=== PATIENT | female | born 1965 | race Caucasian/White ===

== ENCOUNTER → 2020-07-31 16:51 | Outpatient (BNVA) | payer OTHER, SELFPAY | PROVIDERS: Visit Provider Nurse Practitioner Family | DX: Z11.59 Encounter for screening for other viral diseases (principal) | CPT/HCPCS: 87635 ==

== ENCOUNTER → 2020-11-07 11:43 | Outpatient (BNVA) | payer OTHER, SELFPAY | PROVIDERS: Visit Provider Nurse Practitioner Family | DX: H66.91 Otitis media, unspecified, right ear (principal); H60.91 Unspecified otitis externa, right ear; H60.391 Other infective otitis externa, right ear; Z20.828 Contact with and (suspected) exposure to other viral communicable diseases | CPT/HCPCS: 87635 ==

== ENCOUNTER → 2020-11-17 09:06 | Outpatient (BNVA) | payer OTHER, SELFPAY | PROVIDERS: Visit Provider Nurse Practitioner Family | DX: Z20.828 Contact with and (suspected) exposure to other viral communicable diseases (principal); H60.91 Unspecified otitis externa, right ear; R51.9 Headache, unspecified; H60.501 Unspecified acute noninfective otitis externa, right ear | CPT/HCPCS: 85025; 87635 ==

== ENCOUNTER → 2021-05-25 09:44 | Outpatient (BNVA) | payer SELFPAY | PROVIDERS: PCP Nurse Practitioner Family; Visit Provider Nurse Practitioner Family | DX: R30.0 Dysuria (principal); N39.0 Urinary tract infection, site not specified | CPT/HCPCS: 81003; 87086 ==

== ENCOUNTER → 2021-06-01 10:19 | Outpatient (BNVA) | payer SELFPAY | PROVIDERS: PCP Nurse Practitioner Family; Visit Provider Nurse Practitioner Family | DX: R30.0 Dysuria (principal); N39.0 Urinary tract infection, site not specified; R31.29 Other microscopic hematuria | CPT/HCPCS: 81003; 87086 ==

== ENCOUNTER → 2021-06-16 08:44 | Outpatient (BNVA) | payer SELFPAY | PROVIDERS: PCP Nurse Practitioner Family; Visit Provider Nurse Practitioner Family | DX: N39.0 Urinary tract infection, site not specified (principal); R31.9 Hematuria, unspecified | CPT/HCPCS: 80053; 81000; 85025 ==

== ENCOUNTER → 2021-06-29 11:30 | Outpatient (BNVA) | payer SELFPAY | PROVIDERS: PCP Nurse Practitioner Family; Visit Provider Nurse Practitioner Family | DX: Z20.822 Contact with and (suspected) exposure to COVID-19 (principal) | CPT/HCPCS: 87635 ==

== ENCOUNTER → 2023-06-27 08:06 | Outpatient (BNVA) | payer MEDICAID, SELFPAY | PROVIDERS: PCP Nurse Practitioner Family; Visit Provider Nurse Practitioner Family | DX: R30.0 Dysuria (principal); R53.83 Other fatigue; Z13.6 Encounter for screening for cardiovascular disorders | CPT/HCPCS: 80053; 80061; 81000; 82306; 82607; 84443; 85025; 87086 ==

== ENCOUNTER → 2023-07-05 09:18 | Outpatient (BNVA) | payer MEDICAID, SELFPAY | PROVIDERS: PCP Nurse Practitioner Family; Visit Provider Nurse Practitioner Family | DX: R30.0 Dysuria (principal); N39.0 Urinary tract infection, site not specified; R31.9 Hematuria, unspecified; M79.89 Other specified soft tissue disorders; Z87.448 Personal history of other diseases of urinary system; E78.5 Hyperlipidemia, unspecified | CPT/HCPCS: 81000 ==

== ENCOUNTER 2023-07-06 10:38 | Emergency (ER) | payer MEDICAID, SELFPAY ==
[2023-07-06 10:52] VITALS: BMI 22.1
[2023-07-06 10:53] VITALS: BP 153/97; PULSE 72; RESP 16; TEMP 37.1; O2SAT 98
--- NOTE | 2023-07-06 10:59 | ED_ITS ---
HPI - Abdominal Pain General: Chief Complaint: Abdominal Pain Stated Complaint: NV Time Seen by Provider: 07/06/23 10:40 Source: patient Mode of arrival: ambulatory Limitations: no limitations History of Present Illness: Patient is a 58-year-old female presents to ED today with a complaint of lower back pain, bladder pain and spasms, dysuria, and feeling fatigued. Patient states she was seen on 06/27 for similar symptoms through primary care and prescribed antibiotics?Macrobid. She states she did not fill these antibiotics until yesterday and has had a total of one dose. She is not reporting flank pain. She reportedly has a history of some type of ureter/kidney stent that was placed years ago by Dr. Silverman for renal calcification. States this morning she felt nauseous and had one episode of vomiting. She has had normal bowel movements. She states her bladder pain and spasms are worse with urination. MD elicited complaint: other (back/urinary complaints) Onset (ago): day(s) Pain Consistency: intermittent Location: Suprapubic Severity: moderate Quality: burning Radiation: none Migration to: no migration Exacerbating factors: other (urinating) Relieving factors: nothing Associated Symptoms: Reports dysuria, nausea and vomiting (x 1); Denies chills, diarrhea, fever(s), hematuria, hematemesis and syncope Related Data: Patient : No Review of Systems Const: Reports: fatigue; Denies: fever(s), chills, body aches or malaise Eyes: Denies: change in vision, blurry vision, photophobia, floaters or seeing flashes ENMT: Denies: throat pain, odynophagia, ear or mastoid pain, nasal discharge, nasal congestion or sinus pain Card: Denies: chest pain, palpitations, irregular heart rhythm, edema, swelling of feet/ankles, lightheadedness, syncope, pre-syncope, dyspnea on exertion, orthopnea, leg pain with exertion or acrocyanosis Resp: Denies: dyspnea, productive cough, non-productive cough, wheezing, pain on inspiration, hemoptysis or chest congestion GI: Reports: nausea and vomiting (x 1); Denies: abdominal pain, hematemesis or diarrhea : Reports: dysuria and pelvic pain; Denies: flank pain, difficulty voiding, urinary frequency, urinary urgency, urinary hesitancy or hematuria Musc: Reports: back pain; Denies: neck pain, extremity pain, extremity swelling, joint pain or joint swelling Skin/Breast: Denies: rash Neuro: Denies: headache(s), numbness in extremities, weakness in extremities, sensory changes or dizziness PFSH ED PFSH: Medical History Hx of migraines Hyperlipemia No pertinent past medical history Surgical History History of hysterectomy History of kidney surgery 2010 History of knee surgery History of tonsillectomy Family History Father Cancer Hypertension Diabetes Grandmother Cancer Social History Smoking and tobacco status: never smoked Second hand smoke exposure: No Smoking risk assessment/counseling performed?: No Alcohol intake: never Desire information about alcohol rehabilitation?: No Counseling given: No Substance/Drug Use: current Substance/Drug use frequency: daily Desire information about substance/drug rehabilitation?: No Counseling given: No Adopted: No Caregiver/support person: No Lives independently: Yes Household members: spouse Housing: House Marital status: Number of children: 2 Number of grandchildren: 1 Highest education level completed: High School Graduate service: No Current occupational status: unemployed Special darrius needs: No Physical Exam Const: COMMON NORMALS: no acute distress, average body habitus, patient oriented x3, no limitations, healthy appearing, alert and well nourished GENERAL APPEARANCE: cooperative ORIENTATION/CONSCIOUSNESS: Yes awake, Yes oriented to person, Yes oriented to place and Yes oriented to time Resp: COMMON NORMALS: normal respiratory effort and clear to auscultation bilaterally AUSCULTATION: clear to auscultation bilaterally Cardio: COMMON NORMALS: regular rate and regular rhythm RATE: regular rate RHYTHM: regular rhythm GI: COMMON NORMALS: Normal to inspection, nondistended, normoactive bowel sounds present, Soft to palpation, No hepatosplenomegaly present and no masses INSPECTION: Yes normal to inspection AUSCULTATION: Yes normoactive bowel sounds PALPATION: Yes Soft to palpation, Yes Tenderness to palpation present (GI) (throughout lower abdomen), No Guarding due to palpation present (GI), No Rigid due to palpation and Yes No hepatosplenomegaly present : COMMON NORMALS: Yes no CVA tenderness BLADDER/KIDNEY EXAM: Yes no CVA tenderness Back/Pelvis: COMMON NORMALS: no CVA tenderness, thoracic and lumbar spine normal to inspection, no thoracic nor lumbar tenderness and thoraco-lumbar ROM normal Extremity: COMMON NORMALS: normal to inspection GENERAL: Yes normal exam except as noted Neuro: DANE COMA SCALE: document GCS findings [place] coma scale eye opening: Spontaneous [place] coma scale verbal response: Orientated [place] coma scale motor response: Obey commands [place] coma scale total score: 15 COMMON NORMALS: patient oriented x3 SENSORIUM/ORIENTATION: Yes alert, Yes oriented to person, Yes oriented to place and Yes oriented to time Skin: COMMON NORMALS: no rashes or lesions noted GENERAL SKIN EXAM: no rashes or lesions noted Course Vital Signs: Vital signs: Vital Signs Temperature 98.7 F 07/06/23 10:53 Pulse Rate 82 07/06/23 12:45 Respiratory Rate 16 07/06/23 12:45 Blood Pressure 138/94 07/06/23 12:45 Pulse Oximetry 97 07/06/23 12:45 Oxygen Delivery Me thod Room Air 07/06/23 12:45 MDM - Abdominal Pain Medical Decision Making Patient appears in no acute distress. Her vital signs are stable. Blood work is unremarkable. UA somewhat erroneous as nitrate could not be tested secondary to color interference however color was then reported as yellow and clear. She has been taking Azo so I think the appearance is probably charted in error as patient states her urine has been orange. She does have leuks, blood, 5-10 WBCs, and bacteria/mucous. Due to these findings and symptoms I would like her to continue her Macrobid until complete. Will culture. CT scan showing no acute findings. Return to ED precautions. Lab Data 07/06/23 11:05 07/06/23 11:05 Labs/Radiology: Laboratory Results WBC 6.23 10^3/uL (3.29-11.43) 07/06/23 11:05 RBC 4.30 10^6/uL (3.85-5.65) 07/06/23 11:05 Hgb 13.20 g/dL (11.27-16.99) 07/06/23 11:05 Hct 39.9 % (36-47) 07/06/23 11:05 MCV 92.8 fl (85-98) 07/06/23 11:05 MCH 30.7 pg (27-33) 07/06/23 11:05 MCHC 33.1 g/dL (30-55) 07/06/23 11:05 RDW 13.6 % (12.1-15.1) 07/06/23 11:05 Plt Count 300 10^3/cmm (157-399) 07/06/23 11:05 MPV 9.1 fL (7.4-10.4) 07/06/23 11:05 Neut % (Auto) 73.5 % 07/06/23 11:05 Lymph % (Auto) 19.9 % 07/06/23 11:05 [place] % (Auto) 5.1 % 07/06/23 11:05 Eos % (Auto) 0.8 % 07/06/23 11:05 Baso % (Auto) 0.5 % 07/06/23 11:05 Neut # (Auto) 4.58 10^3/uL (1.8-7.7) 07/06/23 11:05 Lymph # (Auto) 1.2 10^3/uL (0.8-4.8) 07/06/23 11:05 [place] # (Auto) 0.3 10^3/uL (0.2-0.9) 07/06/23 11:05 Eos # (Auto) 0.1 10^3/uL (0.0-0.8) 07/06/23 11:05 Baso # (Auto) 0.0 10^3/uL (0.0-0.1) 07/06/23 11:05 Nucleated RBC % (auto) 0 % 07/06/23 11:05 Nucleated RBCs # 0.0 /100WBC 07/06/23 11:05 Sodium 136 mmol/L (136-145) 07/06/23 11:05 Potassium 3.8 mmol/L (3.5-5.1) 07/06/23 11:05 Chloride 101 mmol/L (98-107) 07/06/23 11:05 Carbon Dioxide 25 mmol/L (22-29) 07/06/23 11:05 Anion Gap 13.8 (5-19) 07/06/23 11:05 BUN 13 mg/dL (6-20) 07/06/23 11:05 Creatinine 0.5 mg/dL (0.5-0.9) 07/06/23 11:05 GFR Calculation 127.6 mL/min (90-130) 07/06/23 11:05 Glucose 106 mg/dL (65-115) 07/06/23 11:05 Calculated Osmolality 283 mOsm/kg (285-295) L 07/06/23 11:05 Calcium 9.1 mg/dL (8.5-10.5) 07/06/23 11:05 Total Bilirubin 0.4 mg/dL (0.15-1.2) 07/06/23 11:05 AST 25 U/L (0-32) 07/06/23 11:05 ALT 22 U/L (0-33) 07/06/23 11:05 Alkaline Phosphatase 58 U/L (35-105) 07/06/23 11:05 Total Protein 6.7 g/dL (6.6-8.7) 07/06/23 11:05 Albumin 4.1 g/dL (3.5-5.2) 07/06/23 11:05 Globulin 2.6 g/dL (1.3-4.6) 07/06/23 11:05 Lipase 30 U/L (13-60) 07/06/23 11:05 Urine Color Yellow (Yellow) 07/06/23 12:17 Urine Appearance Clear (CLEAR) 07/06/23 12:17 Urine pH 7 (5-7) 07/06/23 12:17 Ur Specific [place] 1.005 (1.005-1.030) 07/06/23 12:17 Urine Protein 3+ (Negative) H 07/06/23 12:17 Urine Glucose (UA) Norm (Normal) 07/06/23 12:17 Urine Ketones 2+ (Negative) H 07/06/23 12:17 Urine Blood 2+ (Negative) H 07/06/23 12:17 Urine Nitrate Not tested (Negative) A 07/06/23 12:17 Urine Bilirubin 1+ (Negative) H 07/06/23 12:17 Urine Urobilinogen 4 mg/dL (Negative) H 07/06/23 12:17 Ur Leukocyte Esterase 1+ (Negative) H 07/06/23 12:17 Urine RBC 0-4 /hpf (0-2) H 07/06/23 12:17 Urine WBC 5-10 /hpf (0-5) H 07/06/23 12:17 Ur Squamous Epith Cells 0-4 /hpf (0-5) H 07/06/23 12:17 Amorphous Sediment Not Reportable 07/06/23 12:17 Urine Bacteria 1+ /hpf (NONE) H 07/06/23 12:17 Urine Mucus 1+ /hpf 07/06/23 12:17 All radiology interpretation(s) finalized by discharge Discharge Plan Discharge Patient Disposition: Home Clinical Impression: Acute cystitis Qualifiers: Hematuria presence: with hematuria Qualified Code(s): N30.01 - Acute cystitis with hematuria Condition: Stable Prescriptions: No Action diphenhydramine HCl [Benadryl Allergy] 25 mg tablet 50 mg PO DAILY PRN (Reason: Allergy Symptoms) cholecalciferol (vitamin D3) 25 mcg (1,000 unit) capsule 25 mcg PO DAILY nitrofurantoin monohyd/m-cryst [Macrobid] 100 mg capsule 100 mg PO Q12H 7 Days Qty: 14 0RF Rx Instructions: must administer with a meal/food atorvastatin 20 mg tablet 20 mg PO DAILY Qty: 30 5RF phenazopyridine [Pyridium] 200 mg tablet 200 mg PO TID PRN (Reason: pain) Qty: 6 0RF Motrin 400 mg Tablet 800 mg PO DAILY Flonase 50 mcg/actuation [place],Suspension 1 spray INTRANASAL DAILY Rx Instructions: administer into each nostril Women's Multivitamin 18 mg iron-400 mcg-500 mg Tablet 1 tab PO DAILY Discharge Orders: Discharge ED (Routine); Ordered 07/06/23 Ordered By: Leonora Mancini Referrals: Pooja Joseph FNP-C [Primary Care Provider] - Activity Restrictions/Additional Instructions: As we discussed continue your current antibiotic Macrobid. We will culture urine today. You need to follow-up with primary care once Macrobid is completed. You may return to the emergency department for worsening pain, flank pain, fevers, generally feeling worse or unwell, or any other concerns you may have. I hope you begin to feel better soon. Coding Level of Care Code ED Insurance Legal Assistant for Nika Hampton
[2023-07-06 11:09] LABS: Basophils % 0.5 %; Eosinophils # 0.1 10^3/uL (0.0-0.8); Eosinophils % 0.8 %; Hematocrit 39.9 % (36-47); Lymphocytes # 1.2 10^3/uL (0.8-4.8); Lymphocytes % 19.9 %; Mean Corpuscular HGB Conc 33.1 g/dL (30-55); Mean Corpuscular Hemoglobin 30.7 pg (27-33); Mean Corpuscular Volume 92.8 fl (85-98); Mean Platelet Volume 9.1 fL (7.4-10.4); Monocytes # 0.3 10^3/uL (0.2-0.9); Monocytes % 5.1 %; Neutrophils # 4.58 10^3/uL (1.8-7.7); Neutrophils % 73.5 %; Nucleated Red Blood Cells % 0 %; Platelet Count 300 10^3/cmm (157-399); Red Cell Distribution Width 13.6 % (12.1-15.1); White Blood Count 6.23 10^3/uL (3.29-11.43)
--- NOTE | 2023-07-06 11:31 | CT_ITS ---
WS: [id number] CT ABDOMEN PELVIS TECHNIQUE: Contrast-enhanced CT of the abdomen and pelvis with coronal and sagittal reformatted image s. CLINICAL INFORMATION: bladder pain/dysuria, low back pain, vomiting blood, fatigue COMPARISON: None. DLP: 314.[address] scans at [facility] use at least one of these dose optimization techniques: automated e xposure control; mA and/or kV adjustment per patient size (includes targeted exams where dose is matc hed to clinical indication); or iterative reconstruction. FINDINGS: Mild diffuse fatty filtration of the liver. Cholecystectomy clips. Physiologic dilatation of the comm on bile duct postcholecystectomy. Normal portal vein and splenic vein. Normal spleen. Normal GE junct ion. Lung bases are well aerated. Celiac and SMA are patent. Normal caliber abdominal aorta. Mild aortic c alcification. Adrenal glands are normal. Normal renal parenchymal enhancement. No hydronephrosis. Small bilateral r enal cysts. Prominent LEFT extrarenal pelvis. Normal pancreatic parenchymal enhancement. Urine disten ded bladder. No evidence of high-grade small or large bowel obstruction. No periaortic or inguinal ly mphadenopathy. IMPRESSION: 1. No acute findings in the abdomen or pelvis. 2. Prior cholecystectomy. 3. Small bilateral renal cysts. 4. No hydronephrosis in either kidney.
[2023-07-06 11:39] LABS: Alanine Aminotransferase 22 U/L (0-33); Albumin Level 4.1 g/dL (3.5-5.2); Alkaline Phosphatase 58 U/L (35-105); Anion Gap 13.8 (5-19); Aspartate Amino Transferase 25 U/L (0-32); Blood Urea Nitrogen 13 mg/dL (6-20); Calcium 9.1 mg/dL (8.5-10.5); Carbon Dioxide 25 mmol/L (22-29); Chloride 101 mmol/L (98-107); Globulin 2.6 g/dL (1.3-4.6); Glomerular Filtration Rate 127.6 mL/min (90-130); Glucose 106 mg/dL (65-115); Lipase 30 U/L (13-60); Osmolality Calculated 283 mOsm/kg (285-295); Potassium 3.8 mmol/L (3.5-5.1); Sodium 136 mmol/L (136-145); Total Bilirubin 0.4 mg/dL (0.15-1.2); Total Protein 6.7 g/dL (6.6-8.7)
[2023-07-06] MEDS: iohexol 350 mg/mL 500 mL Btl (per mL) IV (12:14)
[2023-07-06 12:45] VITALS: BP 138/94; PULSE 82; RESP 16; O2SAT 97
[2023-07-06 12:51] LABS: Glucose Urine UA Norm (Normal); Ketones Urine 2+ (Negative); Protein Urine 3+ (Negative); Specific Gravity, Urine 1.005 (1.005-1.030); Urine Appearance Clear (CLEAR); Urine Color Yellow (Yellow); pH Urine 7 (5-7)
[2023-07-06 12:52] LABS: Add Urine Microscopic? YES; Bacteria Urine 1+ /hpf; Bilirubin Urine 1+ (Negative); Blood Urine 2+ (Negative); Leukocyte Esterase Urine 1+ (Negative); Mucus Urine 1+ /hpf; Nitrate Urine Not Tested (Negative); RBC Urine 0-4 /hpf (0-2); Squamous Epithelial Cell Urine 0-4 /hpf (0-5); Urobilinogen Urine 4 mg/dL (Negative)
[2023-07-06 12:53] LABS: Add Urine Culture? No
== END 2023-07-06 13:22 | disposition home or self-care (01) ==
PROVIDERS: Emergency Provider Physician Assistant; PCP Nurse Practitioner Family
DX: N30.01 Acute cystitis with hematuria (principal); E78.5 Hyperlipidemia, unspecified
CPT/HCPCS: 36415; 74177; 80053; 81001; 83690; 85025; 87086; 99285; Q9967

== ENCOUNTER 2023-07-11 14:29 | Outpatient (CLI) | payer MEDICAID, SELFPAY ==
--- NOTE | 2023-07-11 14:38 | MM_ITS ---
WS: [id number] BILATERAL 3D TOMOSYNTHESIS DIGITAL SCREENING MAMMOGRAPHY WITH CAD CLINICAL INFORMATION: Z12.39 - Encounter for other screening for malignant neop... HISTORY: Screening mammogram. No current complaints. COMPARISON: 2017 TECHNIQUE: Bilateral CC and MLO views. FINDINGS: Scattered fibroglandular densities bilaterally. No suspicious focal mass, asymmetry, calcifications, or architectural distortion. No evidence of malignancy. Incidental punctate and lucent centered calci fications. IMPRESSION: MM/[place] [id number] BI-RADS: 2-Benign FOLLOW UP: 1 Year Follow-up Recommend return to annual screening mammography.
[2023-07-11] MEDS: iohexol 350 mg/mL 500 mL Btl (per mL) PO (15:10)
== END 2023-07-11 14:30 | disposition home or self-care (01) ==
LOC: RAD 14:30
PROVIDERS: PCP Nurse Practitioner Family; Visit Provider Nurse Practitioner Family
DX: Z12.31 Encounter for screening mammogram for malignant neoplasm of breast
CPT/HCPCS: 77063; 77067; 80053; 80061; 81000; 82306; 82607; 84443; 85025; 87086; Q9967

== ENCOUNTER → 2023-07-12 08:27 | Outpatient (BNVA) | payer MEDICAID, SELFPAY | PROVIDERS: PCP Nurse Practitioner Family; Visit Provider Nurse Practitioner Family | DX: R30.0 Dysuria (principal); N39.0 Urinary tract infection, site not specified; R31.9 Hematuria, unspecified; N28.1 Cyst of kidney, acquired; M79.89 Other specified soft tissue disorders; Z87.448 Personal history of other diseases of urinary system; E78.5 Hyperlipidemia, unspecified | CPT/HCPCS: 81000 ==

== ENCOUNTER → 2023-09-21 10:29 | Outpatient (BNVA) | payer MEDICAID, SELFPAY | PROVIDERS: PCP Nurse Practitioner Family; Visit Provider Nurse Practitioner Family | DX: R05.9 Cough, unspecified (principal); R30.0 Dysuria; R82.90 Unspecified abnormal findings in urine | CPT/HCPCS: 81000; 87077; 87086; 87184; 87400; 87426 ==

== ENCOUNTER → 2024-01-10 10:05 | Outpatient (BNVA) | payer MEDICAID, SELFPAY | PROVIDERS: PCP Nurse Practitioner Family; Visit Provider Nurse Practitioner Family | DX: R50.9 Fever, unspecified (principal) | CPT/HCPCS: 87400 ==

== ENCOUNTER → 2024-09-19 11:33 | Outpatient (BNVA) | payer MEDICAID, SELFPAY | PROVIDERS: PCP Nurse Practitioner Family; Visit Provider Clinical Nurse Specialist Adult Health | DX: J06.9 Acute upper respiratory infection, unspecified (principal) | CPT/HCPCS: 87400; 87426 ==

== ENCOUNTER 2024-09-22 14:03 | Emergency (ER) | payer MEDICAID, SELFPAY ==
--- NOTE | 2024-09-22 14:05 | ECG_ITS ---
[facility] [place] [facility] Date: 2024-09[facility]22 Pat Name: Janet Rosas Department: Room: Gender: Female Emergency Room Specialist: : [id number] Requested By: Ian Houston Order Number: [id number] Reading MD: RIA MATIAS Measurements Intervals [place] Rate: 78 P: 70 MD: 136 QRS: 1 QRSD: 85 T: 62 QT: 377 QTc: 432 Interpretive Statements SINUS RHYTHM MINIMAL ST DEPRESSION [0.025+ mV ST DEPRESSION] No previous ECG available for comparison Electronically Signed On 09-24-2024 16:12:01 STAND UP COMEDIAN by RIA MATIAS [email or web address]
--- NOTE | 2024-09-22 14:05 | XRR_ITS ---
PROCEDURE INFORMATION: Exam: XR Chest Exam date and time: 09/22/2024 3:00 PM Age: 59 years old Clinical indication: Shortness of breath; Additional info: SOB TECHNIQUE: Imaging protocol: Radiologic exam of the chest. Views: 1 view. COMPARISON: CT abdomen pelvis w con* [id number] 07/06/2023 12:02 PM FINDINGS: Lungs: Scarring in the lung apices. Otherwise, unremarkable. Pleural spaces: Unremarkable. No pleural effusion. No pneumothorax. Heart/Mediastinum: Unremarkable. No cardiomegaly. Bones/joints: Mild scoliosis. Minimal spondylosis. Otherwise, unremarkable. XR/XR chest 1V portable [id number] IMPRESSION: No acute disease.
[2024-09-22 14:13] VITALS: BP 145/83; PULSE 77; RESP 18; TEMP 36.7; O2SAT 97
[2024-09-22 14:45] LABS: Basophils % 0.3 %; Eosinophils % 0.4 %; Hematocrit 37.8 % (36-47); Lymphocytes # 2.5 10^3/uL (0.8-4.8); Lymphocytes % 33.2 %; Mean Corpuscular HGB Conc 32.5 g/dL (30-55); Mean Corpuscular Hemoglobin 30.2 pg (27-33); Mean Corpuscular Volume 92.9 fl (85-98); Mean Platelet Volume 9.5 fL (7.4-10.4); Monocytes # 0.5 10^3/uL (0.2-0.9); Monocytes % 7.2 %; Neutrophils # 4.35 10^3/uL (1.8-7.7); Neutrophils % 58.6 %; Nucleated Red Blood Cells % 0 %; Platelet Count 327 10^3/cmm (157-399); Red Blood Count 4.07 10^6/uL (3.85-5.65); Red Cell Distribution Width 13.5 % (12.1-15.1); White Blood Count 7.41 10^3/uL (3.29-11.43)
[2024-09-22 15:16] LABS: Alanine Aminotransferase 16 U/L (0-33); Albumin Level 3.6 g/dL (3.5-5.2); Alkaline Phosphatase 65 U/L (35-105); Anion Gap 13.6 (5-19); Aspartate Amino Transferase 32 U/L (0-32); Blood Urea Nitrogen 15 mg/dL (6-20); Calcium 9.2 mg/dL (8.5-10.5); Carbon Dioxide 24 mmol/L (22-29); Chloride 104 mmol/L (98-107); Creatinine Clr Calc Pharmacy 100.1551; Globulin 2.7 g/dL (1.3-4.6); Glomerular Filtration Rate 127.2 mL/min (90-130); Glucose 92 mg/dL (65-115); NT Pro B Type Natriuretic Pept 273 pg/mL (0-125); Osmolality Calculated 286 mOsm/kg (285-295); Potassium 3.6 mmol/L (3.5-5.1); Sodium 138 mmol/L (136-145); Total Bilirubin 0.2 mg/dL (0.15-1.2); Total Protein 6.3 g/dL (6.6-8.7)
[2024-09-22 15:17] LABS: Covid PCR NEGATIVE (Negative); Influenza A NEGATIVE (Negative); Influenza B NEGATIVE (Negative); Respiratory Syncytial Virus Ce NEGATIVE (Negative)
[2024-09-22] MEDS: dexamethasone 10 mg/mL INJ IM (18:08)
--- NOTE | 2024-09-22 18:09 | ED_ITS ---
HPI - COVID 2 General: Chief Complaint: COVID symptoms Stated Complaint: SOB, cough lips purple Time Seen by Provider: 09/22/24 17:50 Source: patient Mode of arrival: ambulatory Limitations: no limitations History of Present Illness: 59-year-old female states she has been h aving cough congestion some bodyaches over the last 5 to 6 days. States she has had no improvement denies any productive cough she denies any vomiting or diarrhea she had some mild dyspnea no hypoxia. COVID 19 common symptoms: positive non-productive cough; negative fever(s), chills, dyspnea, body aches, headache(s), throat pain, nausea, vomiting or diarrhea COVID 19 other sytmptoms: negative chest pain COVID Results: 2 SARS-CoV-2 Antigen (Rapid) Negative (Negative) 09/19/24 11:33 SARS-CoV-2 RNA (RT-PCR) Not detected (NOT DETECTED) 11/17/20 0 9:06 Nasal/Oral Coronavirus 2019 PCR Not detected 06/29/21 11:30 Coronavirus (PCR) Negative (Negative) 09/22/24 12:17 Related Data Home Medications Medication Instructions Recorded Confirmed cholecalciferol (vitamin D3) 25 25 mcg PO DAILY 11/07/20 01/10/24 mcg (1,000 unit) capsule diphenhydramine HCl 25 mg tablet 50 mg PO DAILY PRN Allergy Symptoms 11/24/20 01/10/24 (Benadryl Allergy) fluticasone propionate 50 1 spray intranasal DAILY 07/06/23 09/19/24 mcg/actuation nasal spray,suspension ibuprofen 400 mg tablet 800 mg PO DAILY 07/06/23 01/10/24 [id number]-[id number]-FA-Ca carb-vit K 1 tab PO DAILY 07/06/23 01/10/24 18 mg iron-400 mcg-500 mg tablet Previous Rx's Medication Instructions Recorded atorvastatin 20 mg tablet 20 mg PO DAILY #30 tabs 07/05/23 hydrochlorothiazide 25 mg tablet 25 mg PO DAILY PRN swelling #30 07/12/23 tabs Allergies Allergy/AdvReac Type Severity Reaction Status Date / Time codeine Allergy ALGY-Anaphy Verified 09/19/24 11:05 laxis Review of Systems 2 Const: Denies: fever(s), chills, body aches or change in appetite ENMT: Denies: throat pain or dental pain Card: Denies: chest pain Resp: Reports: non-productive cough; Denies: dyspnea GI: Denies: abdominal pain, nausea, vomiting or diarrhea Musc: Denies: neck pain or back pain Skin/Breast: Denies: rash Neuro: Denies: headache(s) PFSH ED 2 PFSH: Medical History Hyperlipemia No pertinent past medical history Hx of migraines Surgical History History of tonsillectomy History of hysterectomy History of knee surgery History of kidney surgery 2010 Family History Father Cancer Hypertension Diabetes Grandmother Cancer Social History Smoking and tobacco/nicotine status: never used tobacco/nicotine Second hand smoke exposure: No Alcohol intake: never Substance/Drug Use: current Substance/Drug use frequency: daily Adopted: No Caregiver/support person: No Lives independently: Yes Household members: spouse Housing: House Marital status: Number of children: 2 Number of grandchildren: 1 Highest education level completed: High School Graduate service: No Current occupational status: unemployed Special darrius needs: No Physical Exam 2 Const: COMMON NORMALS: no acute distress, patient oriented x3 and healthy appearing HENMT: COMMON NORMALS: normocephalic and atraumatic HEAD & SCALP: n ormocephalic and atraumatic THROAT: posterior oropharynx normal Eye: COMMON NORMALS: conjunctivae normal CONJUNCTIVA: Yes conjunctivae normal Neck/C-Spine: COMMON NORMALS: full ROM and supple Chest: COMMONS NORMALS: normal inspection of the chest Resp: COMMON NORMALS: normal respiratory effort, No retractions, No use of accessory muscles and clear to auscultation bilaterally AUSCULTATION: clear to auscultation bilaterally Cardio: COMMON NORMALS: regular rate, regular rhythm and No murmurs present (Cardio) RATE: regular rate RHYTHM: regular rhythm Extremity: COMMON NORMALS: normal to inspection and full ROM Neuro: COMMON NORMALS: patient oriented x3, moves all extremities and no focal motor deficits Psych: COMMON NORMALS: mental status grossly normal, Normal thought process present and cooperative THOUGHT PROCESS: Normal thought process present Skin: COMMON NORMALS: no rashes or lesions noted and no wounds GENERAL SKIN EXAM: no rashes or lesions noted Course 2 Vital Signs: Vital signs: Vital Signs Temperature 98.1 F 09/22/24 14:13 Pulse Rate 77 09/22/24 14:13 Respiratory Rate 18 09/22/24 14:13 Blood Pressure 145/83 09/22/24 14:13 Pulse Oximetry 97 09/22/24 14:13 Oxygen Delivery Me thod Room Air 09/22/24 14:13 MDM - COVID Medical Decision Making Patient presents here with cough congestion likely viral upper respiratory infection x-ray shows no pneumonia blood works normal will give her shot of Decadron we will discharge her with inhaler as well she is in no distress here she stable for discharge follow-up PCP return if worsening. Medical Records I reviewed the patient's medical records. Lab Data I reviewed the patient's lab results. 09/22/24 14:26 09/22/24 14:26 Radiology Impressions Chest X-Ray 09/22/24 14:05 IMPRESSION: No acute disease. Laboratory Results WBC 7.41 10^3/uL (3.29-11.43) 09/22/24 14:26 RBC 4.07 10^6/uL (3.85-5.65) 09/22/24 14:26 Hgb 12.30 g/dL (11.27-16.99) 09/22/24 14:26 Hct 37.8 % (36-47) 09/22/24 14:26 MCV 92.9 fl (85-98) 09/22/24 14:26 MCH 30.2 pg (27-33) 09/22/24 14:26 MCHC 32.5 g/dL (30-55) 09/22/24 14:26 RDW 13.5 % (12.1-15.1) 09/22/24 14:26 Plt Count 327 10^3/cmm (157-399) 09/22/24 14:26 MPV 9.5 fL (7.4-10.4) 09/22/24 14:26 Neut % (Auto) 58.6 % 09/22/24 14:26 Lymph % (Auto) 33.2 % 09/22/24 14:26 [place] % (Auto) 7.2 % 09/22/24 14:26 Eos % (Auto) 0.4 % 09/22/24 14:26 Baso % (Auto) 0.3 % 09/22/24 14:26 Neut # (Auto) 4.35 10^3/uL (1.8-7.7) 09/22/24 14:26 Lymph # (Auto) 2.5 10^3/uL (0.8-4.8) 09/22/24 14:26 [place] # (Auto) 0.5 10^3/uL (0.2-0.9) 09/22/24 14:26 Eos # (Auto) 0.0 10^3/uL (0.0-0.8) 09/22/24 14:26 Baso # (Auto) 0.0 10^3/uL (0.0-0.1) 09/22/24 14:26 Nucleated RBC % (auto) 0 % 09/22/24 14:26 Nucleated RBCs # 0.0 /100WBC 09/22/24 14:26 Sodium 138 mmol/L (136-145) 09/22/24 14:26 Potassium 3.6 mmol/L (3.5-5.1) 09/22/24 14:26 Chloride 104 mmol/L (98-107) 09/22/24 14:26 Carbon Dioxide 24 mmol/L (22-29) 09/22/24 14:26 Anion Gap 13.6 (5-19) 09/22/24 14:26 BUN 15 mg/dL (6-20) 09/22/24 14:26 Creatinine 0.5 mg/dL (0.5-0.9) 09/22/24 14:26 GFR Calculation 127.2 mL/min (90-130) 09/22/24 14:26 Glucose 92 mg/dL (65-115) 09/22/24 14:26 Calculated Osmolality 286 mOsm/kg (285-295) 09/22/24 14:26 Calcium 9.2 mg/dL (8.5-10.5) 09/22/24 14:26 Total Bilirubin 0.2 mg/dL (0.15-1.2) 09/22/24 14:26 AST 32 U/L (0-32) 09/22/24 14:26 ALT 16 U/L (0-33) 09/22/24 14:26 Alkaline Phosphatase 65 U/L (35-105) 09/22/24 14:26 NT-Pro-B Natriuret Pep 273 pg/mL (0-125) H 09/22/24 14:26 Total Protein 6.3 g/dL (6.6-8.7) L 09/22/24 14:26 Albumin 3.6 g/dL (3.5-5.2) 09/22/24 14:26 Globulin 2.7 g/dL (1.3-4.6) 09/22/24 14:26 Coronavirus (PCR) Negative (Negative) 09/22/24 12:17 Influenza A (PCR) Negative (Negative) 09/22/24 12:17 Influenza Type B (PCR) Negative (Negative) 09/22/24 12:17 RSV (PCR) Negative (Negative) 09/22/24 12:17 2 SARS-CoV-2 Antigen (Rapid) Negative (Negative) 09/19/24 11:33 SARS-CoV-2 RNA (RT-PCR) Not detected (NOT DETECTED) 11/17/20 0 9:06 Nasal/Oral Coronavirus 2019 PCR Not detected 06/29/21 11:30 Coronavirus (PCR) Negative (Negative) 09/22/24 12:17 All radiology interpretation(s) finalized by discharge Discharge Plan Discharge Patient Disposition: Home Clinical Impression: Upper respiratory infection Qualifiers: URI type: unspecified URI Qualified Code(s): J06.9 - Acute upper respiratory infection, unspecified Condition: Stable Prescriptions: No Action diphenhydramine HCl [Benadryl Allergy] 25 mg tablet 50 mg PO DAILY PRN (Reason: Allergy Symptoms) cholecalciferol (vitamin D3) 25 mcg (1,000 unit) capsule 25 mcg PO DAILY atorvastatin 20 mg tablet 20 mg PO DAILY Qty: 30 5RF hydrochlorothiazide 25 mg tablet 25 mg PO DAILY PRN (Reason: swelling) Qty: 30 2RF Motrin 400 mg Tablet 800 mg PO DAILY Flonase 50 mcg/actuation [place],Suspension 1 spray INTRANASAL DAILY Rx Instructions: administer into each nostril Women's Multivitamin 18 mg iron-400 mcg-500 mg Tablet 1 tab PO DAILY Discharge Orders: Discharge ED (Routine); Ordered 09/22/24 Ordered By: Ian Houston Discharge Diet: Advance as tolerated Discharge Activity: Resume usual activity Patient Instructions: Upper Respiratory Infection (ED) Coding Level of Care Code ED Laser Machine Operator for Nika Hampton
[2024-09-22 18:11] VITALS: BP 147/92; PULSE 75; RESP 16; O2SAT 96; O2SAT 98
[2024-09-22 18:19] VITALS: PULSE 74; RESP 18; O2SAT 97
[2024-09-22 18:21] VITALS: BP 141/99; PULSE 72; RESP 16; O2SAT 99
== END 2024-09-22 18:24 | disposition home or self-care (01) ==
PROVIDERS: Emergency Provider Emergency Medicine
DX: J06.9 Acute upper respiratory infection, unspecified (principal); Z11.52 Encounter for screening for COVID-19; E78.5 Hyperlipidemia, unspecified
CPT/HCPCS: 0241U; 71045; 80053; 83880; 85025; 93005; 94640; 96372; 99284; 99285; J1100; J3535

== ENCOUNTER → 2024-12-18 08:04 | Outpatient (BNVA) | payer MEDICAID, SELFPAY | PROVIDERS: PCP Clinical Nurse Specialist Adult Health; Visit Provider Clinical Nurse Specialist Adult Health | DX: I10 Essential (primary) hypertension (principal); E78.5 Hyperlipidemia, unspecified | CPT/HCPCS: 80053; 80061; 85025 ==

== ENCOUNTER → 2025-07-01 09:28 | Outpatient (BNVA) | payer MEDICAID, SELFPAY | PROVIDERS: PCP Clinical Nurse Specialist Adult Health; Visit Provider Clinical Nurse Specialist Adult Health | DX: I10 Essential (primary) hypertension (principal); E78.5 Hyperlipidemia, unspecified; E55.9 Vitamin D deficiency, unspecified | CPT/HCPCS: 80053; 80061; 82306; 82607; 85025 ==

== ENCOUNTER 2025-10-14 07:51 | Outpatient (CLI) | payer MEDICAID, SELFPAY ==
--- NOTE | 2025-10-14 08:00 | CT_ITS ---
WS: [id number] LDCT LUNG CANCER SCREENING HISTORY: F17.210 - Nicotine dependence, cigarettes, uncomplicated TECHNIQUE: Axial imaging performed from the apices to 1 cm below the costophrenic angles. Coronal and sagittal reformats are submitted with axial MIP series. All CT scans at [facility] use at least one of these dose optimization techniques: automated exposure control; mA and/or kV adjustment per patient size (includes targeted exams where dose is matched to clinical indication); or iterative reconstruction. DLP: 46.79 mGy.cm DIvol: Mean CTDIvol: 0.80 (mGy) COMPARISON: None available. Diagnostic quality: Satisfactory Lungs: Symmetric biapical areas of pleural thickening and fibrosis. Marked pulmonary hyperinflation with centrilobular emphysema. 2 mm nodule RIGHT lower lobe, image 192 series 5. There are a few additional very small nodules also which are micronodules. No mass. No endobronchial lesion. Heart: Normal size heart with no pericardial effusion.. Other findings: Mild atherosclerosis aorta. Normal size pulmonary artery. No pericardial or pleural effusions. No pathologically enlarged lymph nodes. Small hiatal hernia. No adrenal mass. Prior cholecystectomy. Mild increase in thoracic kyphosis. CT/CT lung screening [id number] IMPRESSION: LUNG-RADS: 2-Benign Appearance or Behavior FOLLOW UP: 12 Month: Continue annual screening with LDCT OTHER FINDINGS (S MODIFIER): None.
--- NOTE | 2025-10-14 08:30 | USR_ITS ---
PROCEDURE INFORMATION: Exam: US Duplex Bilateral Lower Extremity Arteries Exam date and time: 10/14/2025 8:04 AM Age: 60 years old Clinical indication: Other: Numbness in toes; Additional info: R20.0 - anesthesia of skin TECHNIQUE: Imaging protocol: Real-time ultrasound scan of the arteries of the bilateral lower extremities with 2-D church scale, color Doppler flow and spectral waveform analysis. Images documented and saved. COMPARISON: CT abdomen pelvis w con* [id number] 07/06/2023 12:02 PM FINDINGS: Right common femoral artery: No occlusion or significant stenosis. Normal waveform. Right superficial femoral artery: No occlusion or significant stenosis. Normal waveform. Right popliteal artery: No occlusion or significant stenosis. Normal waveform. Right calf/foot arteries: No occlusion or significant stenosis in the visualized arteries. Normal waveforms. Dorsalis pedis artery is patent. Left common femoral artery: No occlusion or significant stenosis. Normal waveform. Left superficial femoral artery: No occlusion or significant stenosis. Normal waveform. Left popliteal artery: No occlusion or significant stenosis. Normal waveform. Left calf/foot arteries: No occlusion or significant stenosis in the visualized arteries. Normal waveforms. Dorsalis pedis artery is patent. Soft tissues: SILVANA: Right equals 1.01, left equals 1.03. US/[place] [id number] IMPRESSION: 1. No stenosis or occlusion. 2. Normal ABIs.
--- NOTE | 2025-10-14 09:15 | USR_ITS ---
PROCEDURE INFORMATION: Exam: US Duplex Upper Extremity Arteries Exam date and time: 10/14/2025 8:37 AM Age: 60 years old Clinical indication: Other: Numbness in fingers; Additional info: R20.0 - anesthesia of skin TECHNIQUE: Imaging protocol: Real-time ultrasound scan of the arteries of the bilateral upper extremities with 2-D church scale, color Doppler flow and spectral waveform analysis. Complete exam. COMPARISON: No relevant prior studies available. FINDINGS: Right subclavian artery: No occlusion or significant stenosis. Normal waveform. Right axillary artery: No occlusion or significant stenosis. Normal waveform. Right brachial artery: No occlusion or significant stenosis. Normal waveform. Right radial artery: No occlusion or significant stenosis. Normal waveform. Right ulnar artery: No occlusion or significant stenosis. Normal waveform. Left subclavian artery: No occlusion or significant stenosis. Normal waveform. Left axillary artery: No occlusion or significant stenosis. Normal waveform. Left brachial artery: No occlusion or significant stenosis. Normal waveform. Left radial artery: No occlusion or significant stenosis. Normal waveform. Left ulnar artery: No occlusion or significant stenosis. Normal waveform. US/[place] [id number] IMPRESSION: No arterial stenosis.
== END 2025-10-14 07:52 | disposition home or self-care (01) ==
LOC: RAD 07:52
PROVIDERS: PCP Clinical Nurse Specialist Adult Health; Visit Provider Clinical Nurse Specialist Adult Health
DX: Z12.2 Encounter for screening for malignant neoplasm of respiratory organs (principal); F17.210 Nicotine dependence, cigarettes, uncomplicated; J92.9 Pleural plaque without asbestos; J43.2 Centrilobular emphysema; J98.4 Other disorders of lung; R91.8 Other nonspecific abnormal finding of lung field; I70.0 Atherosclerosis of aorta; K44.9 Diaphragmatic hernia without obstruction or gangrene; Z90.49 Acquired absence of other specified parts of digestive tract; M40.204 Unspecified kyphosis, thoracic region; R20.0 Anesthesia of skin; J84.10 Pulmonary fibrosis, unspecified
CPT/HCPCS: 71271; 93925; 93930